=== PATIENT | female | born 1985 | race Caucasian/White ===

== ENCOUNTER → 2024-07-20 | Day surgery (SDC) | payer OTHER | LOC: CSHULT 12:18 | PROVIDERS: ATTEND Obstetrics & Gynecology | PROC: 0HB5XZX Excision of Chest Skin, External Approach, Diagnostic (ICD-10-PCS; principal; 2024-07-20) | DX: C50.811 Malignant neoplasm of overlapping sites of right female breast (principal); C77.3 Secondary and unspecified malignant neoplasm of axilla and upper limb lymph nodes; N63.10 Unspecified lump in the right breast, unspecified quadrant; R92.8 Other abnormal and inconclusive findings on diagnostic imaging of breast | CPT/HCPCS: 19083; 38505; 76942; 88305; 88341; 88342; 88361 ==

== ENCOUNTER 2025-10-30 05:44 | Day surgery (SDC) | payer OTHER ==
[2025-10-28 13:11] VITALS: BMI 31.7
[2025-10-30] MEDS ORDERED: diphenhydrAMINE 50 MG/ML VIAL ONE (06:29)
[2025-10-30] MEDS ORDERED: Rocuronium Bromide 10 MG/ML (10ML VIAL) ONE (06:29)
[2025-10-30] MEDS ORDERED: Ondansetron PF 4 MG/2 ML Vial ONE (06:29)
[2025-10-30] MEDS ORDERED: PROPOFOL 20 ML ONE ×2 (06:29→07:36)
[2025-10-30] MEDS ORDERED: SUGAMMADEX SODIUM 200 MG/2 ML VIAL ONE (06:29)
[2025-10-30] MEDS ORDERED: Sevoflurane 250 ML INH ANEST BOTTLE ONE (06:56)
[2025-10-30] MEDS ORDERED: Bupivacaine/Epinephrine 0.25% 30 ML VIAL ONE (06:56)
[2025-10-30] MEDS ORDERED: CEFAZOLIN 2 GM VIAL ONE (06:56)
[2025-10-30] MEDS ORDERED: Hydrocortisone Sod Succ/PF 100 mg/2 ml Vial ONE (07:21)
[2025-10-30] MEDS ORDERED: SUCCINYLCHOLINE/SOD CL,ISO/PF 200 MG/10 ML SYRINGE FS ONE (07:35)
[2025-10-30] MEDS ORDERED: PHENYLEPHRINE-NS 100 MCG/ML 10 ML SYRINGE ONE (07:35)
== END 2025-10-30 10:35 | disposition home or self-care (01) ==
LOC: CSHSDC 05:44
PROVIDERS: ATTEND Surgery
PROC: 0FT44ZZ Resection of Gallbladder, Percutaneous Endoscopic Approach (ICD-10-PCS; principal; 2025-10-30)
PROC: BF50200 Other Imaging of Bile Ducts using Fluorescing Agent, Indocyanine Green Dye, Intraoperative (ICD-10-PCS; principal; 2025-10-30)
DX: K80.10 Calculus of gallbladder with chronic cholecystitis without obstruction (principal); I10 Essential (primary) hypertension; Z85.3 Personal history of malignant neoplasm of breast; Z90.11 Acquired absence of right breast and nipple; Z88.8 Allergy status to other drugs, medicaments and biological substances; Z79.899 Other long term (current) drug therapy
CPT/HCPCS: 47563; C9776; 88304; C1889; C1894; J1100; J1200; J1720; J2405; J2550; J2704; J3010; Q9967; S2900